=== PATIENT | female | born 1985 | race Caucasian/White ===

== ENCOUNTER 2021-10-10 09:22 | Outpatient (REF) | payer OTHER, SELFPAY ==
--- NOTE | ~2021-10-10 | XR_ITS ---
EXAMINATION: XR CHEST CLINICAL INFORMATION: Shortness of breath. COMPARISON: None TECHNIQUE: 2 views of the chest were obtained. FINDINGS: No significant abnormality is noted involving the heart, lungs, mediastinum, bony thorax or soft tissues. XR/XR chest 2V IMPRESSION: No acute cardiopulmonary process.
== END 2021-10-10 09:23 | disposition home or self-care (01) ==
LOC: HO.HMGCX 09:22
PROVIDERS: PCP Internal Medicine; Visit Provider Internal Medicine
DX: R06.02 Shortness of breath (principal); R06.2 Wheezing; R05.8 Other specified cough; F17.200 Nicotine dependence, unspecified, uncomplicated
CPT/HCPCS: 71046

== ENCOUNTER 2023-02-09 23:41 | Emergency (ER) | payer OTHER, SELFPAY ==
[2023-02-09 23:43] VITALS: BP 163/114; PULSE 109; RESP 20; TEMP 37.2; O2SAT 98; BMI 37.4
--- NOTE | 2023-02-10 00:26 | PC.NURSE ---
pt ambulated with a steady gait with this RN to and from bathroom
[2023-02-10 00:33] VITALS: PULSE 97; RESP 14; O2SAT 96
--- NOTE | 2023-02-10 00:36 | ED.GENADULT ---
HPI - General Adult General Chief complaint: General Medical Stated complaint: OD? 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 Related Data Home Medications Medication Instructions Recorded Confirmed gabapentin 300 mg capsule 300 mg PO TID 12/17/20 10/10/21 sertraline 100 mg tablet 200 mg PO QAM 12/17/20 10/10/21 buprenorphine 12 mg-naloxone 3 mg 6 mg sublingual DAILY 10/10/21 10/10/21 sublingual film (Suboxone) bupropion HCl 150 mg 24 hr tablet, 300 mg PO DAILY 10/10/21 10/10/21 extended release Previous Rx's Medication Instructions Recorded prednisone 20 mg tablet 20 mg PO DAILY 7 days #7 tabs 10/10/21 minocycline 100 mg capsule 100 mg PO BID #20 caps 10/30/21 Allergies Allergy/AdvReac Type Severity Reaction Status Date / Time No Known Allergies Allergy Verified 02/09/23 23:43 Review of Systems Review of Systems: All other systems are reviewed and are negative Constitutional: Reports as per HPI and Reports no additional constitutional complaints Eyes: Reports as per HPI and Reports no additional eye complaints Reports system reviewed and no additional complaints, except as documented Cardiovascular: Reports as per HPI and Reports no additional cardiovascular complaints Respiratory: Reports as per HPI and Reports no additional respiratory complaints Gastrointestinal: Reports as per HPI and Reports no additional gastrointestinal complaints Genitourinary: Reports no additional female genitourinary complaints Musculoskeletal: Reports no additional musculoskeletal complaints Skin/Breast: Reports system reviewed and no additional complaints, except as docu Psychiatric: Reports no additional psychiatric complaints Endocrine: Reports no additional endocrine complaints Hematologic/Lymphatic: Reports no additional hematologic/lymphatic complaints Allergic/Immunologic: Reports no additional allergic/immunologic complaints Reports system reviewed and no additional complaints, except as documented and Reports Abnormal speech present PMFSH Social History Social History Unable to assess alcohol history related to: Unknown Use of substances other than those prescribed or required for medical reasons: Yes Substance Use Type: Heroin Substance Use Frequency: Chronic Longstanding Last Used Substance: Just Prior to Admission Advance Directives: No Advance Directives Information Provided: Yes Patient : No Physical Exam ED Vital Signs: Vital Signs - 24 hr 02/09/23 23:43 02/10/23 00:33 Temperature 99.0 F Pulse Rate 109 H 97 Respiratory Rate 20 14 Blood Pressure 163/114 H Pulse Oximetry 98 96 Oxygen Delivery Method Room Air Room Air BMI result Body Mass Index 37.4 Vital signs have been reviewed and appear to be correct. Blood pressure elevated. Heart rate normal. Respiratory rate normal. Temperature normal. Oxygen saturation normal. Appearance: Alert. Oriented X3. No acute distress. Head: Normal external exam. Normocephalic. Atraumatic. No Humphreys signs noted. No raccoon eyes noted Eyes: PERRLA. EOMI. Conjunctiva and sclera normal. Eyelids normal. ENT: TM's Normal. Pharynx normal. Uvula midline. Moist mucous membranes. No trismus noted. No drooling noted. No muffled voice noted. Neck: Normal inspection. Neck supple. FROM. No adenopathy. Thyroid Normal. No meningeal signs. No neck mass noted. CVS: Normal heart rate and rhythm. Heart sound normal. No murmurs noted. Pulses normal throughout. Respiratory: No respiratory distress. Painless inspiration. Breath sounds normal. No wheezes/rales/rhonchi noted. Chest nontender. No accessory muscle usage noted or decreased air movement noted. Abdomen: Soft and nontender. Bowel sounds normal in all 4 quadrants. No distention noted. No organomegaly noted. No visible injury noted. Back: No CVA tenderness. Full range of motion noted. Skin: Skin warm and dry. Normal skin color. Normal skin turgor. No rashes/lesions/lacerations noted. Extremities: No lower extremity edema. Extremities exhibit normal range of motion. Extremities nontender. Neuro: Oriented X 3. Cranial nerve exam: II-XII are grossly intact No motor deficit. No sensory deficit. Reflexes normal. Course Course Course Narrative: 330 37-year-old female s/p heroin snorting require Narcan, patient now is awake and alert, with stable vital signs, no SI or HI, patient agreed using heroin stated that she will never use it again. Accidental OD. 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 Medical Decision Making Differential Diagnosis Differential Diagnoses: The differential diagnosis associated with the presentation includes ( substance abuse, SI.) Discharge Plan Discharge Clinical Impression: Heroin overdose Qualifiers: Encounter type: initial encounter Injury intent: accidental or unintentional Qualified Code(s): T40.1X1A - Poisoning by heroin, accidental (unintentional), initial encounter Patient Disposition: Home, Self-Care Instructions: Polysubstance Abuse (ED) Prescriptions: No Action gabapentin 300 mg capsule 300 mg PO TID sertraline 100 mg tablet 200 mg PO QAM buprenorphine-naloxone [Suboxone] 12-3 mg film 6 mg sublingual DAILY bupropion HCl 150 mg tablet extended release 24 hr 300 mg PO DAILY prednisone 20 mg tablet 20 mg PO DAILY 7 Days Qty: 7 0RF minocycline 100 mg capsule 100 mg PO BID Qty: 20 0RF
--- NOTE | 2023-02-10 03:31 | PC.NURSE ---
pt requesting to leave says she has a ride available to come pick her up. MD earl
[2023-02-10 03:32] VITALS: BP 156/94; PULSE 89; RESP 17; O2SAT 97
== END 2023-02-10 03:48 | disposition home or self-care (01) ==
PROVIDERS: Emergency Provider Emergency Medicine
DX: T40.1X1A Poisoning by heroin, accidental (unintentional), initial encounter (principal); Y92.9 Unspecified place or not applicable; F11.10 Opioid abuse, uncomplicated; Z79.899 Other long term (current) drug therapy; Z71.51 Drug abuse counseling and surveillance of drug abuser
CPT/HCPCS: 99284

== ENCOUNTER 2023-10-20 12:51 | Emergency (ER) | payer OTHER, SELFPAY ==
[2023-10-20 13:13] VITALS: BP 144/73; PULSE 84; RESP 18; TEMP 36.6; O2SAT 98; BMI 34.7
--- NOTE | 2023-10-20 13:22 | ED_ITS ---
HPI - General Adult General Chief complaint: Upper Respiratory Symptoms Stated complaint: sore throat Time Seen by Provider: 10/20/23 13:41 History of Present Illness ED Provider: Nahid NUGYEN HPI narrative: 38-year-old female healthy history of folliculitis, smoker presents to the ED for sore throat for the past couple of days. Patient states her kids were sick with strep. Patient denies any chest pain, shortness of breath, drooling, change in voice, or neck swelling. Related Data Home Medications ?Medication ?Instructions ?Recorded ?Confirmed gabapentin 300 mg capsule 300 mg PO TID 12/17/20 10/10/21 sertraline 100 mg tablet 200 mg PO QAM 12/17/20 10/10/21 buprenorphine 12 mg-naloxone 3 mg 6 mg sublingual DAILY 10/10/21 10/10/21 sublingual film (Suboxone) bupropion HCl 150 mg 24 hr tablet, 300 mg PO DAILY 10/10/21 10/10/21 extended release Previous Rx's ?Medication ?Instructions ?Recorded prednisone 20 mg tablet 20 mg PO DAILY 7 days #7 tabs 10/10/21 minocycline 100 mg capsule 100 mg PO BID #20 caps 10/30/21 amoxicillin 875 mg-potassium 1 tab PO Q12H 10 days #20 tabs 10/20/23 clavulanate 125 mg tablet naproxen 500 mg tablet 500 mg PO BID PRN pain 7 days #14 10/20/23 tabs Allergies Allergy/AdvReac Type Severity Reaction Status Date / Time No Known Allergies Allergy Verified 10/20/23 13:16 Review of Systems Review of Systems: sore throat Yes all other systems are reviewed and are negative [facility] Social History Social History Unable to assess alcohol history related to: Unknown Substance Use Type: Heroin Advance Directives: No Advance Directives Information Provided: No Do you have a plan to hurt others: No Plan Physical Exam ED Vital Signs: Vital Signs - 24 hr 10/20/23 13:13 10/20/23 14:11 Temperature 98 F 98 F Pulse Rate 84 84 Respiratory Rate 18 18 Blood Pressure 144/73 H 144/73 H Pulse Oximetry 98 98 Oxygen Delivery Method Room Air Room Air BMI result Body Mass Index 34.7 Const General: cooperative, healthy appearing, comfortable, no acute distress, well developed, alert, awake and Physically active Orientation/consciousness: oriented to person, oriented to place, oriented to time and patient oriented x3 [facility] Head: Yes normal to inspection, Yes No palpable skull fracture present, Yes normocephalic and Yes atraumatic Throat: Yes posterior oropharynx normal, Yes uvula midline and Yes abnormal tonsil (Bilateral tonsillar exudates. Negative for signs of peritonsillar abscess) Eyes General: appearance normal, both eyes and all related structures Neck Neck: Yes normal visual inspection, Yes full ROM, Yes no lymphadenopathy, Yes no meningeal signs, Yes trachea midline, Yes supple, No anterior neck swelling and No tender Chest Chest palpation & inspection: normal inspection of the chest and normal palpation of entire chest wall Resp Effort & Inspection: normal respiratory effort and able to speak in complete sen tences Auscultation: clear to auscultation bilaterally Cardio Jugular venous distension: no JVD Heart sounds: S1 normal heart sound present and S2 normal heart sound present GI Inspection: Yes normal to inspection Palpation (GI): Soft to palpation, not firm, nontender, no guarding and not rigid General: No CVA tenderness and Yes no CVA tenderness Back/Spine/Pelvis Back: no CVA tenderness, No CVA tenderness and No back tenderness Skin General skin exam: no rashes or lesions noted, elasticity normal and turgor normal Neuro General: oriented to person, oriented to place, oriented to time, patient oriented x3, gait normal, tone normal, moves all extremities, Normal light touch and pain sensation, no meningeal signs, no focal motor deficits, CN's II-XI intact bilaterally and normal sensation to monofilament Extrem General: Yes normal to inspection, Yes full ROM and Yes capillary refill normal Psych Appearance: grossly normal, well kempt and not disheveled Course Course Course Narrative: RME: Done by KANA Abbott. Patient presents to ED for sore throat since yesterday. Patient denies any drooling or change in voice. Physical exam positive for bilateral white exudates. Negative for signs of peritonsillar abscess. SARs strep ordered Medical Decision Making Medical Decision Making MDM Narrative: 38-year-old female presents to ED for sore throat. Patient not in any distress. Negative for signs of peritonsillar abscess. Positive for bilateral tonsillar exudates. Patient will be discharged with antibiotics. Patient is explained worrisome signs informed to return to the ED she has them Differential Diagnosis Differential Diagnoses: The differential diagnosis associated with the presentation includes (Strep, prior tonsillitis, COVID, influenza) Lab Data MDM Lab Attestation statement: I reviewed the patient's lab results. Labs: Lab Results 10/20/23 Range/Units 13:21 Influenza Type A (PCR) NEGATIVE (Negative) Influenza Type B (PCR) NEGATIVE (Negative) RSV RNA Qual (PCR) NEGATIVE (Negative) SARS-CoV-2 RNA (RT-PCR) NEGATIVE (Negative) S. pyogenes GrpA MEAGHAN Positive A (Negative) Independent Historian Clinical information obtained from an independent historian. History obtained from or confirmed by: Other (Patient) External Record Review External record reviewed: Other (anbiotics) Prescription Management I considered prescription management with: Antibiotic Discharge Plan Discharge Clinical Impression: Strep throat Patient Disposition: Home, Self-Care Instructions: Strep Throat (ED) Additional Instructions: Recommend follow-up for drooling, change in voice, neck swelling, chest pain, shortness of breath, inability tolerate solid food/liquid, fever, chills, or any other concerning symptoms. Recommend follow-up with primary care provider Prescriptions: New amoxicillin-pot clavulanate 875-125 mg tablet 1 tab PO Q12H 10 Days Qty: 20 0RF naproxen 500 mg tablet 500 mg PO BID PRN (Reason: pain) 7 Days Qty: 14 0RF No Action gabapentin 300 mg capsule 300 mg PO TID sertraline 100 mg tablet 200 mg PO QAM buprenorphine-naloxone [Suboxone] 12-3 mg film 6 mg sublingual DAILY bupropion HCl 150 mg tablet extended release 24 hr 300 mg PO DAILY prednisone 20 mg tablet 20 mg PO DAILY 7 Days Qty: 7 0RF minocycline 100 mg capsule 100 mg PO BID Qty: 20 0RF Stand Alone Forms: Work/School Release Interventions: ED Discharge Assessment Last Done: 10/20/23 14:11 Discharge Date/Time: 10/20/23 14:12 Print Language: Japanese
[2023-10-20 13:34] LABS: IDNOW Serial# 58CA691E; Strep A Nucleic Acid Positive (Negative)
[2023-10-20 14:07] LABS: Influenza A PCR NEGATIVE (Negative); Influenza B PCR NEGATIVE (Negative); Resp Syncy Virus RNA Qual PCR NEGATIVE (Negative); SARS COV2 PCR INHOUSE NEGATIVE (Negative)
[2023-10-20 14:11] VITALS: BP 144/73; PULSE 84; RESP 18; TEMP 36.6; O2SAT 98
== END 2023-10-20 14:12 | disposition home or self-care (01) ==
PROVIDERS: Physician Assistant; Emergency Provider Emergency Medicine; PCP Internal Medicine
DX: J02.0 Streptococcal pharyngitis (principal); F17.210 Nicotine dependence, cigarettes, uncomplicated; Z03.818 Encounter for observation for suspected exposure to other biological agents ruled out
CPT/HCPCS: 0241U; 87651; 99282; 99283

== ENCOUNTER 2023-12-11 11:56 | Emergency (ER) | payer OTHER, SELFPAY ==
[2023-12-11 12:33] VITALS: BP 151/88; PULSE 86; RESP 19; TEMP 36.8; O2SAT 98; BMI 34.4
--- NOTE | 2023-12-11 12:34 | ED.GENADULT ---
HPI - General Adult General Chief complaint: General Medical Stated complaint: strep Time Seen by Provider: 12/11/23 12:59 Source: patient Mode of arrival: ambulatory Limitations: no limitations History of Present Illness HPI narrative: Patient is a 38-year-old female who presents to the emergency department for evaluation of a sore throat with onset this morning. Admits to a history of strep infection in October, she did not complete her entire course of antibiotics having missed 4 doses. She took 2 tablets this morning. She has concern that she was around coworkers who have strep as well. Related Data Home Medications ?Medication ?Instructions ?Recorded ?Confirmed gabapentin 300 mg capsule 300 mg PO TID 12/17/20 10/10/21 sertraline 100 mg tablet 200 mg PO QAM 12/17/20 10/10/21 buprenorphine 12 mg-naloxone 3 mg 6 mg sublingual DAILY 10/10/21 10/10/21 sublingual film (Suboxone) bupropion HCl 150 mg 24 hr tablet, 300 mg PO DAILY 10/10/21 10/10/21 extended release Previous Rx's ?Medication ?Instructions ?Recorded prednisone 20 mg tablet 20 mg PO DAILY 7 days #7 tabs 10/10/21 minocycline 100 mg capsule 100 mg PO BID #20 caps 10/30/21 amoxicillin 875 mg-potassium 1 tab PO Q12H 10 days #20 tabs 10/20/23 clavulanate 125 mg tablet naproxen 500 mg tablet 500 mg PO BID PRN pain 7 days #14 10/20/23 tabs Allergies Allergy/AdvReac Type Severity Reaction Status Date / Time No Known Allergies Allergy Verified 12/11/23 12:38 Review of Systems Review of Systems: Yes all other systems are reviewed and are negative PMFSH Past Medical History Attestation statement: The following information was validated with the patient. Source: old records reviewed Social History Social History Unable to assess alcohol history related to: Unknown Substance Use Type: Heroin Advance Directives: No Advance Directives Information Provided: No Do you have a plan to hurt others: No Plan Physical Exam ED Vital Signs: Vital Signs - 24 hr 12/11/23 12:33 Temperature 98.2 F Pulse Rate 86 Respiratory Rate 19 Blood Pressure 151/88 H Pulse Oximetry 98 Oxygen Delivery Method Room Air BMI result Body Mass Index 34.4 Appearance: Alert.?Oriented to person, place and time. No acute distress.?Normal affect. Eyes: Pupils equal, round and reactive to light.? ENT: Pharynx normal.? No erythema, tonsillar hypertrophy, exudates. Uvula is midline. No trismus. No drooling. ? Neck: Normal inspection.? Neck supple.??No cervical adenopathy CVS: Heart sounds normal. Normal heart rate and rhythm.? Pulses normal.?? Respiratory: No respiratory distress.? Lung sounds clear to auscultation bilaterally?? Skin: Skin warm and dry.? Normal skin color.? Extremities: No lower extremity edema.? Neuro: Moves all extremities spontaneously. Sensation intact bilaterally. Ambulates with normal steady gait. Course Course Course Narrative: This is an RME: Additional HPI, ROS, PE not included below will be deferred to primary provider. RME assessment and note performed by: Selina Stephenson PA-C This is a [id number]-female who presents to the ER with a complaint of sore throat since this morning. Had strep throat in October, missed 4 doses of this antibiotic then. Had recent outbreak at work. Took 2 tablets of abx this AM from left over prescription Plan: strep and viral swabs Medical Decision Making Medical Decision Making [facility] Narrative: Patient is a 38-year-old female who presents emergency department for evaluation of a sore throat with onset this morning. Expressed concern for strep throat as she did not complete her previous course of antibiotics in October, and was around some coworkers who have tested positive for strep. On evaluation pharynx is without erythema swelling or exudates. 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 No cervical adenopathy. No additional constitutional symptoms are present. She appears overall well. Viral panel for COVID-19/influenza/RSV are negative, strep a testing is negative. Discussed with patient conservative treatment including warm saltwater gargles, throat lozenges and Chloraseptic throat spray. Acetaminophen/ibuprofen. Advised to follow up with her primary care provider. Reviewed worrisome signs and symptoms that would warrant re-evaluation in the emergency department. All questions answered. Differential Diagnosis Differential Diagnoses: The differential diagnosis associated with the presentation includes (See narrative above) Lab Data [facility] Lab Attestation statement: I reviewed the patient's lab results. (See narrative above) Labs: Lab Results 12/11/23 12/11/23 Range/Units 12:50 12:51 Influenza Type A (PCR) NEGATIVE (Negative) Influenza Type B (PCR) NEGATIVE (Negative) RSV RNA Qual (PCR) NEGATIVE (Negative) SARS-CoV-2 RNA (RT-PCR) NEGATIVE (Negative) S. pyogenes GrpA MEAGHAN Negative (Negative) External Record Review External record reviewed: Outpatient record Prescription Management I considered prescription management with: Pain Medication (See narrative above) Discharge Plan Discharge Clinical Impression: Pharyngitis Patient Disposition: Home, Self-Care Instructions: Pharyngitis (ED) Additional Instructions: Testing today for COVID-19/influenza/strep were negative. You can take ibuprofen 200 mg, 3 tablets (600mg) every 6-8 hours as needed for pain, in addition to Tylenol 500 mg, 2 tablets (1,000mg) every 4-6 hours as needed for pain, but not to exceed 3 doses daily (3,000mg).? Warm salt water gargles, throat lozenges, Chloraseptic throat spray from the pharmacy may as well be helpful for your symptoms. Patient that you are staying well hydrated and drinking plenty of fluid. Follow-up with your primary care provider as needed. Prescriptions: No Action amoxicillin-pot clavulanate 875-125 mg tablet 1 tab PO Q12H 10 Days Qty: 20 0RF naproxen 500 mg tablet 500 mg PO BID PRN (Reason: pain) 7 Days Qty: 14 0RF gabapentin 300 mg capsule 300 mg PO TID sertraline 100 mg tablet 200 mg PO QAM buprenorphine-naloxone [Suboxone] 12-3 mg film 6 mg sublingual DAILY bupropion HCl 150 mg tablet extended release 24 hr 300 mg PO DAILY prednisone 20 mg tablet 20 mg PO DAILY 7 Days Qty: 7 0RF minocycline 100 mg capsule 100 mg PO BID Qty: 20 0RF Referrals: Chandni Ramsey MD [Primary Care Provider] - Stand Alone Forms: Work/School Release Print Language: Gambian
[2023-12-11 13:09] LABS: IDNOW Serial# 08D9AD1C; Strep A Nucleic Acid Negative (Negative)
[2023-12-11 13:38] LABS: Influenza A PCR NEGATIVE (Negative); Influenza B PCR NEGATIVE (Negative); Resp Syncy Virus RNA Qual PCR NEGATIVE (Negative); SARS COV2 PCR INHOUSE NEGATIVE (Negative)
[2023-12-11 14:35] VITALS: BP 147/92; PULSE 69; RESP 16; TEMP 36.8; O2SAT 98
== END 2023-12-11 14:39 | disposition home or self-care (01) ==
PROVIDERS: Physician Assistant Medical; Emergency Provider Student in an Organized Health Care Education/Training Program; PCP Internal Medicine
DX: J02.9 Acute pharyngitis, unspecified (principal); Z03.818 Encounter for observation for suspected exposure to other biological agents ruled out
CPT/HCPCS: 0241U; 87651; 99282; 99283

== ENCOUNTER 2024-06-14 12:26 | Emergency (ER) | payer OTHER, SELFPAY ==
[2024-06-14 13:48] VITALS: BP 135/83; PULSE 98; RESP 18; TEMP 36.4; O2SAT 98; BMI 34.1
--- NOTE | 2024-06-14 13:52 | ED.GENADULT ---
HPI - General Adult General Chief complaint: Skin/Abscess/Foreign Body Stated complaint: Abscess on back History of Present Illness HPI narrative: Patient left the ED before completion of treatment by ED provider. Related Data Home Medications ?Medication ?Instructions ?Recorded ?Confirmed gabapentin 300 mg capsule 300 mg PO TID 12/17/20 10/10/21 sertraline 100 mg tablet 200 mg PO QAM 12/17/20 10/10/21 buprenorphine 12 mg-naloxone 3 mg 6 mg sublingual DAILY 10/10/21 10/10/21 sublingual film (Suboxone) bupropion HCl 150 mg 24 hr tablet, 300 mg PO DAILY 10/10/21 10/10/21 extended release Previous Rx's ?Medication ?Instructions ?Recorded prednisone 20 mg tablet 20 mg PO DAILY 7 days #7 tabs 10/10/21 minocycline 100 mg capsule 100 mg PO BID #20 caps 10/30/21 amoxicillin 875 mg-potassium 1 tab PO Q12H 10 days #20 tabs 10/20/23 clavulanate 125 mg tablet naproxen 500 mg tablet 500 mg PO BID PRN pain 7 days #14 10/20/23 tabs Allergies Allergy/AdvReac Type Severity Reaction Status Date / Time No Known Allergies Allergy Verified 06/14/24 13:50 [facility] Social History Social History Unable to assess alcohol history related to: Unknown Substance Use Type: Heroin Advance Directives: No Advance Directives Information Provided: No Do you have a plan to hurt others: No Plan Physical Exam ED Vital Signs: Vital Signs - 24 hr 06/14/24 13:48 Temperature 97.5 F Pulse Rate 98 Respiratory Rate 18 Blood Pressure 135/83 Pulse Oximetry 98 Oxygen Delivery Method Room Air BMI result Body Mass Index 34.1 Course Course Course Narrative: RME: 39-year-old female presents to ED for possible back abscess. Patient has not between back with drainage. Patient has tried to draining with tweezers. Patient to be re-evaluating [facility]. Discharge Plan Discharge Clinical Impression: Abscess of skin or subcutaneous tissue Patient Disposition: Left W/O Completing Treatment Prescriptions: No Action amoxicillin-pot clavulanate 875-125 mg tablet 1 tab PO Q12H 10 Days Qty: 20 0RF naproxen 500 mg tablet 500 mg PO BID PRN (Reason: pain) 7 Days Qty: 14 0RF gabapentin 300 mg capsule 300 mg PO TID sertraline 100 mg tablet 200 mg PO QAM buprenorphine-naloxone [Suboxone] 12-3 mg film 6 mg sublingual DAILY bupropion HCl 150 mg tablet extended release 24 hr 300 mg PO DAILY prednisone 20 mg tablet 20 mg PO DAILY 7 Days Qty: 7 0RF minocycline 100 mg capsule 100 mg PO BID Qty: 20 0RF Discharge Date/Time: 06/14/24 18:40
== END 2024-06-14 18:40 | disposition left against medical advice (07) ==
LOC: HO.ED 18:29
PROVIDERS: Emergency Provider Emergency Medicine; PCP Internal Medicine
DX: L02.212 Cutaneous abscess of back [any part, except buttock and flank] (principal); Z79.899 Other long term (current) drug therapy
CPT/HCPCS: 99281; 99283

== ENCOUNTER 2025-01-07 15:49 | Emergency (ER) | payer OTHER, SELFPAY ==
--- NOTE | ~2025-01-07 | XR_ITS ---
CLINICAL HISTORY: possible needle in chin? 4 view facial bones Comparison: None provided Findings: No acute fractures. Paranasal sinuses and mastoids are clear. No radiopaque foreign body. IMPRESSION: No suspicious radiopaque foreign body. This document has been electronically signed by: Sonia Guerra MD on 01/07/2025 18:01:50
[2025-01-07 16:09] VITALS: BP 183/86; PULSE 112; RESP 20; TEMP 36; O2SAT 97; BMI 32.6
--- NOTE | 2025-01-07 16:09 | ED_ITS ---
HPI - General Adult General Chief complaint: Wound/Laceration Stated complaint: left side chin, right jaw wound-goes to wound care Time Seen by Provider: 01/07/25 17:02 Source: patient Mode of arrival: ambulatory Limitations: no limitations History of Present Illness ED Provider: Marybeth Liu PA-C HPI narrative: Patient is a 39 year old assigned female at with a history of anxiety and ongoing left sided facial wound presenting to the emergency department for a left chin lesion and concern of needle tip in the wound. Patient reports the lesion is inflamed, painful, and feels like there is something hard stuck in the lesion . Patient states that she will pick at the lesion to try to remove whatever is stuck and used a sterile needle a few days ago. She is concerned that the tip of the needle broke off and is now stuck in the lesion. She states that she has been on over 10 courses of antibiotics in the past 6 months for the chin lesion. Patient reports the left chin lesion has been present since 07/2024 and she goes to a wound clinic weekly for wound care of the lesion. She reports she has been using an osteopathic ointment called Ichthammol on the lesion which helps. Patient denies fever, chills, headache, dizziness, shortness of breath, difficulty breathing, abdominal pain, nausea, vomiting, or any other symptoms. Patient currently vapes and denies any current substance use. Patient reports upcoming appointment with dermatology on 01/20/2025 and imaging ordered by wound care on 02/02/2025. Patient also reports she had a referral placed to a plastic surgeon by her primary care that she plans to call this coming Thursday. Related Data Home Medications ?Medication ?Instructions ?Recorded ?Confirmed gabapentin 300 mg capsule 300 mg PO TID 12/17/2010/10 sertraline 100 mg tablet 200 mg PO QAM 12/17/2010/10 buprenorphine 12 mg-naloxone 3 mg 6 mg sublingual VINH Y 10/10/21 10/10/21 sublingual film (Suboxone) bupropion HCl 150 mg 24 hr tablet, 300 mg PO DAILY 01/2310/10/21 extended release Previous Rx's ?Medication ?Instructions ?Recorded prednisone 20 mg tablet 20 mg PO DAILY 7 days #7 tab s 10/10/21 minocycline 100 mg capsule 100 mg PO BID #20 caps 10/03 01/23 amoxicillin 875 mg-potassium 1 tab PO Q12H 10 days #20 tabs 10/20/23 clavulanate 125 mg tablet naproxen 500 mg tablet 500 mg PO BID PRN pain 7 day s #14 10/20/23 tabs sulfamethoxazole 800 1 tab PO BID 7 days #14 tabs 01/07/25 mg-trimethoprim 160 mg tablet (Bactrim DS) Allergies Allergy/AdvReac Type Severity Reaction Status Date / Time No Known Allergies Allergy Verified 01/07/25 16:09 Review of Systems 2 Constitutional: Constitutional: Reports as per HPI Eyes: Eyes: Reports as per HPI ENT: Reports as per HPI Cardiovascular: Cardiovascular: Reports as per HPI Respiratory: Respiratory: Reports as per HPI Gastrointestinal: Gastrointestinal: Reports as per HPI Genitourinary: Genitourinary: Reports as per HPI Musculoskeletal: Musculoskeletal: Reports as per HPI Integumentary/Breasts: Skin/Breast: Reports as per HPI Neurologic: Reports as per HPI Psychiatric: Psychiatric: Reports as per HPI Endocrine: Endocrine: Reports as per HPI Hematologic/Lymphatic: Hematologic/Lymphatic: Reports as per HPI Allergic/Immunologic: Allergic/Immunologic: Reports as per HPI [facility] Past Medical History Attestation statement: The following information was validated with the patient. Source: old records reviewed and nursing notes reviewed Social History Social History Unable to assess alcohol history related to: Unknown Substance Use Type: Heroin Advance Directives: No Advance Directives Information Provided: No Physical Exam ED Vital Signs: Vital Signs - 24 hr 01/07/25 16:09 01/07/25 18:35 Temperature 96.8 F 98.9 F Pulse Rate 112 H 100 Respiratory Rate 20 20 Blood Pressure 183/86 H 139/97 H Pulse Oximetry 97 99 Oxygen Delivery Method Room Air Room Air BMI result Body Mass Index 32.6 Const General: cooperative, no acute distress, alert and awake Nutritional Appearance: well nourished Orientation/consciousness: patient oriented x3 HENMT Head: Yes normal to inspection and Yes atraumatic Ears: hearing grossly normal bilaterally and external ears normal General nose exam: Normal external nose present, no nasal discharge noted and no epistaxis Face and sinus: No abrasion and No laceration Face images: 2 1. indurated lesion present with minimal surrounding erythema Mouth: Normal oral and palatal mucosa present, no drooling and no muffled voice Eyes General: appearance normal, both eyes and all related structures Periorbital: periorbital findings normal Eyelids: Yes eyelids normal Conjunctivae: conjunctivae normal Pupils: Equal, round and reactive pupils present EOM: EOMs intact bilaterally Neck Neck: Yes normal visual inspection and Yes full ROM Resp Effort & Inspection: normal respiratory effort and able to speak in complete sentences Neuro General: patient oriented x3, moves all extremities and CN's II-XI intact bilaterally Cranial nerves: Yes Equal, round and reactive pupils present Cognition (Neuro): normal cognition Extrem General: Yes normal to inspection, Yes full ROM and Yes capillary refill normal Psych Appearance: grossly normal Mental Status: mental status grossly normal Affect: normal affect Attitude: cooperative Thought process: Normal thought process present Thought content: Normal thought content present Insight: Good insight present (Psych) Course Course Course Narrative: This is a Rapid Medical Examination (RME) performed by Marisol Quinones PA-C in triage. Full HPI, ROS, assessment and treatment plan per primary provider in the Main ED. Hx: 39 yo F here for eval of worsening facial pain/ swelling x4 days. reports chronic ulcer to left chin region and right cheek x6 months, of unknown origin. has followed w/ wound care for 2 mo. has some sort of imaging scheduled w/ radiology on 02/02. reports picking at it with a hypodermic needle 4 days ago, believes the tip of the needle broke off into the ulcerated area as the area has been more painful/swollen. also reports swelling to left knee x3 months. Plan: labs, will defer imaging to primary provider. Medical Decision Making Medical Decision Making [facility] Narrative: Patient is a 39 year old assigned female at with a history of anxiety and ongoing left sided facial wound presenting to the emergency department for a left chin lesion and concern of needle tip in the wound. Patient's physical exam was as noted in the physical exam portion of this note. Patient's blood work was unremarkable. Patient's facial bones x-ray showed no acute process or foreign body. I explained my physical exam findings as well as all test results to the patient. I answered all questions asked by the patient. I had an extensive conversation with the patient about her goals of care and current treatment plan. I explained to the patient that it would be inappropriate for me to open the area here in the emergency department and if she wanted something to be done this evening, I would recommend she be transferred to a tertiary care center with OMFS / Plastic surgery coverage. The patient declined this stating she is a single mother of twin boys and has to be to work and to support them. We discussed things further and determined the best course of action would be for the patient to be sent home on bactrim (patient states this has worked the best for her in the past) and having her follow up with the wound care center, her PCP, and calling the plastic surgeon she was referred to on Thursday. I will also refer the patient to [facility]. I stressed the importance of the patient taking her medication as directed (either prescribed or as the over the counter packaging recommends). I stressed the importance of the patient following up with her primary care provider, the wound care center, and a plastic surgeon. I stressed the importance of the patient returning to the emergency department immediately if her symptoms were to worsen or if she were to develop any dizziness, shortness of breath, difficulty breathing, chest pain, blurry vision, loss of vision, nausea, vomiting, abdominal pain, fever, chills, back pain, or any other complaints. Patient verbalized agreement and understanding with this treatment plan and discharge. Differential Diagnosis Differential Diagnoses: The differential diagnosis associated with the presentation includes Chronic facial lesion Chronic wound Cellulitis Admission/Observation Consideration of admission/observation: Escalation of care including admission/observation considered Patient would have been admitted to the hospital had her work up had any findings where hospital admission was appropriate and her clinical presentation warranted hospital admission. Lab Data MDM Lab Attestation statement: I reviewed the patient's lab results. My interpretation of these studies and their corresponding values is that they are grossly normal. 01/07/25 16:36 01/07/25 16:36 Labs: Lab Results 01/07/25 Range/Units 16:36 WBC 7.8 (4.8-10.8) X10*3/uL RBC 4.28 (4.20-5.50) X10*6/uL Hgb 12.5 (12.0-16.0) g/dl Hct 36.4 L (37.0-47.0) % MCV 85.0 (80.0-98.0) fL MCH 29.2 (27.0-33.0) pg MCHC 34.3 (31.0-35.0) g/dl RDW 13.2 (11.0-16.0) % Plt Count 282 (160-400) X10*3/uL MPV 11.2 (9.4-12.3) fL Immature Gran % (Auto) 0.1 (0.0-0.4) % Neut % (Auto) 61.2 (45-73) % Lymph % (Auto) 31.8 (20-40) % [place] % (Auto) 5.8 (2-11) % Eos % (Auto) 0.5 (0-4) % Baso % (Auto) 0.6 (0-2) % Lymph # (Auto) 2.5 (1.2-4.9) X10*3/uL [place] # (Auto) 0.5 (0.1-1.2) X10*3/uL Eos # (Auto) 0.0 (0.0-0.4) X10*3/uL Baso # (Auto) 0.1 (0.0-0.2) X10*3/uL Abs Immat Gran (auto) 0.01 (0.00-0.03) X10*3/uL Absolute Neuts (auto) 4.8 (2.0-8.3) x10*3/uL Absolute Nucleated RBC 0.000 (0.0-0.012) X10*3/uL Nucleated RBC % (auto) 0.0 (0.0-0.2) /100WBC ESR 7 (0-20) MM/HR Sodium 140 (135-145) mmol/L Potassium 3.9 (3.3-5.1) mmol/L Chloride 106 (96-108) mmol/L Carbon Dioxide 23 (22-29) mmol/L Anion Gap 15 (12-20) BUN 18 H (9-16) mg/dL Creatinine 0.75 (0.5-1.4) mg/dL Estim Creat Clear Calc 111.9 Estimated GFR > 60 Random Glucose 96 (60-115) mg/dL Calcium 9.6 (8.4-10.2) mg/dL Magnesium 1.9 (1.6-2.6) mg/dL Total Bilirubin 0.2 (0.0-1.0) mg/dL AST 26 (5-31) U/L ALT 24 (0-31) U/L Alkaline Phosphatase 77 (39-117) U/L C-Reactive Protein < 0.10 (< or = 0.50) mg/dL Total Protein 7.9 (6.5-8.0) g/dL Albumin 5.0 (3.5-5.0) g/dL Independent Interpretation I performed an independent interpretation of an: Plain X-Ray Interpretation: My interpretation is in agreement with the radiologist's impression of this imaging study. L Reason for Exam: possible needle in chin? CLINICAL HISTORY: possible needle in chin? 4 view facial bones Comparison: None provided Findings: No acute fractures. Paranasal sinuses and mastoids are clear. No radiopaque foreign body. IMPRESSION: No suspicious radiopaque foreign body. This document has been electronically signed by: Sonia Guerra MD on 01/07/2025 18:01:50 Dictated By: Sonia Guerra MD Signed By: Electronically signed by Sonia Guerra MD 01/07/25 1802 Radiology Impression Discussion of test interpretation with radiology: I have reviewed the radiologist's reading. Prescription Management I considered prescription management with: Antibiotic (patient prescribed an antibiotic for her left sided facial lesion) Discharge Plan Discharge Clinical Impression: Cellulitis, Facial lesion Patient Disposition: Home, Self-Care Instructions: Cellulitis (ED), Warm Compress or Soak (ED) Additional Instructions: Take your medication as prescribed. Continue applying warm compresses to the area. Follow up with the wound center as well as plastic surgeon. IF you are prescribed home medications and/or you are taking over the counter medications at home - it is very important you continue to do so as prescribed / directed unless told otherwise. Follow up with your primary care provider. Return to the emergency department immediately if your symptoms worsen or if you develop any numbness, tingling, dizziness, shortness of breath, difficulty breathing, chest pain, blurry vision, loss of vision, nausea, vomiting, abdominal pain, fever, chills, back pain, or any other complaints. Please see the information below about our Patient Portal. If you are not yet enrolled in the [facility] Patient Portal, you will receive an enrollment email invitation following your visit to any [facility] setting. You may also self-enroll in the Patient Portal by visiting our website: [email or web address] The following information is required to access the Patient Portal: - Your [facility] Medical Record Number - Your personal home email address (must match what is in your electronic medical record, Registration staff can assist with this) - Name - Date of Capabilities of the Patient Portal: - Message some providers - View upcoming appointments - Access your health summary, medical history, and visit history - View current conditions and allergies - View procedure and lab results - View your medications, including guidelines, side effects, and precautions - Complete pre-appointment questionnaires requested by your provider - Ready summary reports of your office visits and procedures To access the Patient Portal Mobile Barron, follow these directions: - Search FriendFit in the [employer] Store or [employer] Store - Download the Barron - Search for [facility] - Enter your login/password Prescriptions: New sulfamethoxazole-trimethoprim [Bactrim DS] 800-160 mg tablet 1 tab PO BID 7 Days Qty: 14 0RF No Action amoxicillin-pot clavulanate 875-125 mg tablet 1 tab PO Q12H 10 Days Qty: 20 0RF naproxen 500 mg tablet 500 mg PO BID PRN (Reason: pain) 7 Days Qty: 14 0RF gabapentin 300 mg capsule 300 mg PO TID sertraline 100 mg tablet 200 mg PO QAM buprenorphine-naloxone [Suboxone] 12-3 mg film 6 mg sublingual DAILY bupropion HCl 150 mg tablet extended release 24 hr 300 mg PO DAILY prednisone 20 mg tablet 20 mg PO DAILY 7 Days Qty: 7 0RF minocycline 100 mg capsule 100 mg PO BID Qty: 20 0RF Referrals: Chandni Ramsey MD [Primary Care Provider, Medical] [facility] [Outside] Referral Note: Call to establish and follow up with a plastic surgeon. Print Language: Macedonian
[2025-01-07 16:41] LABS: MANUAL DIFF FLAG NO
[2025-01-07 16:44] LABS: Hematocrit 36.4 % (37.0-47.0); Hemoglobin 12.5 g/dl (12.0-16.0); Imm Gran Abs Auto 0.01 X10*3/uL (0.00-0.03); Imm Gran Pct Auto 0.1 % (0.0-0.4); Lymphocytes Absolute Auto 2.5 X10*3/uL (1.2-4.9); Mean Corpuscular HGB Conc 34.3 g/dl (31.0-35.0); Mean Corpuscular Hemoglobin 29.2 pg (27.0-33.0); Mean Corpuscular Volume 85.0 fL (80.0-98.0); NRBC Abs Auto 0.000 X10*3/uL (0.0-0.012); NRBC Pct Auto 0.0 /100WBC (0.0-0.2); Platelet Count 282 X10*3/uL (160-400); Red Blood Count 4.28 X10*6/uL (4.20-5.50); White Blood Count 7.8 X10*3/uL (4.8-10.8)
--- OUTSIDE RECORDS SUMMARY | 2025-01-07 16:54 | XMS_ITS | Clinical Summary ---
Author Organization [address] Address [address] [place] [id number] Phone Care Team Providers Care Geophysical Laboratory Supervisor Name Role Phone Chandni Ramsey MD Primary Care Provider [phone] Allergies Active Allergy Reactions Criticality Noted Date Comments Other 03/08/2015 Seasonal allergies Watery eye's , runny nose Medications methylphenidate (RITALIN) 10 mg tablet Take 1 Tablet by mouth 2 Times Daily. 07/28/2023 Active methylphenidate (RITALIN) 5 mg tablet Take 1 Tablet by mouth 2 Times Daily. 07/23/2023 Active gabapentin (NEURONTIN) 400 mg capsule TAKE 1 CAPSULE BY MOUTH THREE TIMES A DAY 07/19/2023 Active buPROPion XL (WELLBUTRIN XL) 150 mg 24 hr tablet TAKE 1 TABLET BY MOUTH EVERY DAY IN THE MORNING 07/23/2023 Active sertraline (ZOLOFT) 100 mg tablet Take 1 Tablet by mouth daily. 2 tablets daily Active buprenorphine HCl/naloxone HCl (SUBOXONE SL) Place under the tongue. 6 mg daily Active gabapentin (NEURONTIN) 300 mg capsule 3 times daily. 12/10/2021 Active amLODIPine (NORVASC) 2.5 mg tablet TAKE 1 TABLET BY MOUTH EVERY DAY 90 tablet 1 10/31/2024 Active Active Problems Problem Noted Date Diagnosed Date Pure hypercholesterolemia 08/17/2023 Bone spur of left foot 02/24/2022 Elevated blood pressure reading 02/24/2022 Obesity (BMI 30-39.9) 02/24/2022 Foot pain, left 12/13/2021 Folliculitis 08/31/2020 Hirsutism 05/25/2020 Snoring 11/11/2018 Overview (04/14/2024): 11/2018 Home Sleep Study did not reveal sleep apnea or nocturnal hypoxia. Dorsocervical fat pad 11/17/2017 Cigarette smoker 12/05/2016 Pap smear abnormality of cervix 10/16/2016 Overview (04/14/2024): 10/16/2016 Negative cytology, Positive High Risk HPV PCOS (polycystic ovarian syndrome) 05/29/2014 Overview (04/14/2024): Followed by Dr. Sherman Asthma 05/18/2014 Depression 05/18/2014 Overview (04/14/2024): F/u [facility]N History of substance abuse ([facility] V24, [facility] V28) 05/18/2014 Overview (04/14/2024): Cocaine/Heroin Now attends AA 10/09/2016 Was on vivatrol for management from [facility]. Gabriella Dacia stopped medication August 2016 r/t + Encounters Date Type Department Care Team Description 10/12/2024 Telephone Infectious Disease - [address] [place] [address] Sera Nathan MA from Last 3 Months Immunizations Name Administration Dates Next Due HPV 9-valent (Gardisil) 9yo to less than 46yo 08/24/2020 HPV, Quadrivalent 08/20/2009 Hepatitis B (Mgaugnt-S-Zrfbp , Recombivax HB-Adult) 19yo and older 12/22/2018,11/17/2018 Influenza Quadravalent, MDCK , 0.5ml, preservative free (Flucelvax) 6mo and older 04/18/2018 Influenza trivalent, 0.5mL, preservative free (Fluarix; FluLaval; Fluzone) ages 6mo and older (Afluria) 3 years and older 01/23/2016,03/08/2015 MMR, measles mumps and rubel la Live (Priorix; M-M-R II) 12mo and older 11/03/2018 PPD Test 12/22/2018, 9,07/16/2015,2015 Pneumococcal conjugate 13 va lent (Prevnar 13, PCV13) 2mo and older 07/18/2015 Tdap Tetanus diptheria acell ular pertussis (Boostrix; Adacel) 7yo and older 07/16/2015,06/20/2011 Surgical History Surgery Date Site/Laterality Comments SECTION PROCEDURE: HISTORICAL DELIVERY Medical History Medical History Date Comments Substance abuse ([facility] [place]24 , [facility] V28) DX:Substance abuse ([facility]); CO MMENT: past heroin user (clean since 07/30/13 HSV-1 infection DX:HSV-1 infecti on Anxiety and depression 05/18/2014 DX:Anxiet y and depression Asthma 05/18/2014 DX:Asthma Bipolar disorder ([facility] V2 4, [facility] V28) DX:Bipolar disorder ([facility]) Catahoula hump 11/17/2017 DX:Catahoula hump Family History Medical History Relation Name Comments Melanoma Aunt maternal side Hypertension Father Ovarian cancer Mother Breast cancer Neg Hx Cancer of Small Bowel Neg Hx Colon cancer Neg Hx Kidney cancer Neg Hx Pancreatic cancer Neg Hx Relation Name Status Comments Aunt Brother Alive Father Alive Maternal Grandfather Maternal Grandmother Alive Mother Alive Social History Tobacco Use Types Packs/Day Years Used Date Smoking Tobacco: Former Smokeless Tobacco: Never Alcohol Use Standard Drinks/Week Comments Yes 0 (1 standard drink = 0.6 oz pur e alcohol) Comments Unknown Sex and Gender Information Value Date Recorded Sex Assigned at Not on file Legal Sex Female 12:02 PM EST Gender Identity Not on file Sexual Orientation Not on file Obstetrics History Last Filed Vital Signs Vital Sign Reading Time Taken Comments Blood Pressure 122/82 10/05/2024 10:23 AM EDT Pulse 74 10/05/2024 10:23 AM EDT Temperature 36.3 C (97.3 F) 10/05/2024 10:23 AM EDT Respiratory Rate 20 10/05/2024 10:23 AM EDT Oxygen Saturation - - Inhaled Oxygen Concentration - - Weight 90.7 kg (200 lb) 10/05/2024 10:23 AM EDT Height 165.1 cm (5' 5 ) 10/05/2024 10:23 AM EDT Body Mass Index 33.28 10/05/2024 10:23 AM EDT Plan of Treatment Health Maintenance Due Date Last Done Comments Pneumococcal Vaccine: Pediatrics (0 to 5 Years) and At-Risk Patients (6 to 49 Years) (2 of 2 - PPSV23) 09/12/2015 07/18/2015 Hepatitis B Vaccines (3 of 3 - 19+ 3-dose series) 05/20/2019 12/22/2018, 11/17/2018 HPV Vaccines (3 - 3-dose series) 11/16/2020 08/24/2020, 08/20/2009 Social Influencers of Health Screening 04/12/2022 Depression Screening 05/04/2024 08/14/2023 COVID-19 Vaccine ( season) 2025 06/29/2021, 05/22/2020, 05/01/2020 Influenza Vaccine (#1) 2025 , 04/18/2018, 01/23/2016, Additional history exists DTaP,Tdap,and Td Vaccines (3 - Td or Tdap) 07/15/2025 07/16/2015, 06/20/2011 Cervical Cancer Screening: HPV 05/28/2028 05/28/2023 Cholesterol Screening (Lipid Panel) 08/13/2028 08/14/2023 MMR Vaccines Aged Out 11/03/2018 No longer eligi ble based on patient's age to complete this topic HIV Screening Completed 05/28/2023 Hepatitis C Screening Completed 05/28/2023 HIB Vaccines Aged Out No longer eligi ble based on patient's age to complete this topic Hepatitis A Vaccines Aged Out No long er eligible based on patient's age to complete this topic IPV Vaccines Aged Out No longer eligi ble based on patient's age to complete this topic Meningococcal ACWY Vaccine Aged Out N o longer eligible based on patient's age to complete this topic Meningococcal B Vaccine Aged Out No l onger eligible based on patient's age to complete this topic RSV Immunization Patients Under 20 months Aged Out No longer eligible based on patient's age to complete this topic Varicella Vaccines Aged Out No longer eligible based on patient's age to complete this topic Procedures Procedure Name Priority Date/Time Associated Diagnosis Comments HM DEPRESSION SCREENING Routine 08/14/2023 LIPID PANEL Routine 08/14/2023 HPV Routine 05/28/2023 HEPATITIS C SCREENING Routine 05/28/2023 HIV SCREENING Routine 05/28/2023 from Last 3 Months or Most Recently Relevant to Health Maintenance Results * Depression Screening (08/14/2023) Pathologist [facility] Depression Screening abstracted [facility] Provider HEALTH MAINTENANCE Final Result * (ABNORMAL) Lipid panel (08/14/2023) Pathologist [facility] LDL/HDL Ratio 4 0 - 4 Triglycerides 135 0 - 150 mg/dL Cholesterol 210(A) 0 - 200 mg/dL HDL 51 >=40 mg/dL LDL Cholesterol 132(A) 0 - 100 mg/dL Blood Venous blood specimen / Unknown [facility] Provider LAB BLOOD ORDERABLES Mary l Result * Cervical Cancer Screening: HPV (05/28/2023) Pathologist [facility] Cervical Cancer Screening: HPV abstracted, negative [facility] Provider HEALTH MAINTENANCE Final Result * HIV Screening (05/28/2023) [facility] HIV Screening abstracted [facility] Provider HEALTH MAINTENANCE Final Result * Hepatitis C Screening (05/28/2023) Pathologist [facility] Hepatitis C Screening abstracted [facility] Provider HEALTH MAINTENANCE Final Result from Last 3 Months or Most Recently Relevant to Health Maintenance Insurance [address] [place] [address] [facility] Care Teams Geophysical Laboratory Supervisor Relationship Specialty Start Date End Date Chandni Ramsey MD [address] [place] [address] PCP - General Internal Medicine 12/28/18
--- OUTSIDE RECORDS SUMMARY | 2025-01-07 16:54 | XMS_ITS ---
Author Name [facility] Organization Unknown Care Team Organization Name Specialty Phone Email Start Date End Da te [facility] 03/11/2022 12/21/2023
[2025-01-07 16:55] LABS: Alanine Aminotransferase 24 U/L (0-31); Albumin Level 5.0 g/dL (3.5-5.0); Alkaline Phosphatase 77 U/L (39-117); Anion Gap 15 (12-20); Aspartate Amino Transferase 26 U/L (5-31); Blood Urea Nitrogen 18 mg/dL (9-16); Calcium 9.6 mg/dL (8.4-10.2); Carbon Dioxide 23 mmol/L (22-29); Chloride 106 mmol/L (96-108); Creatinine Clr Calc Pharmacy 111.9; Estimated Glomerular Filt Rate > 60; Magnesium 1.9 mg/dL (1.6-2.6); Potassium 3.9 mmol/L (3.3-5.1); Sodium 140 mmol/L (135-145); Total Protein 7.9 g/dL (6.5-8.0)
[2025-01-07 18:35] VITALS: BP 139/97; PULSE 100; RESP 20; TEMP 37.2; O2SAT 99
[2025-01-07] MEDS: Sulfamethox/Trimeth 800/160 TABLET 1 TAB PO (20:19)
[2025-01-07 21:09] VITALS: BP 114/82; PULSE 82; RESP 18; TEMP 37.1; O2SAT 97
== END 2025-01-07 20:30 | disposition home or self-care (01) ==
PROVIDERS: Physician Assistant Medical; Emergency Provider Emergency Medicine; PCP Internal Medicine
DX: L03.211 Cellulitis of face (principal); L02.01 Cutaneous abscess of face
CPT/HCPCS: 36415; 70150; 80053; 83735; 85025; 85652; 86140; 99283; 99284

== ENCOUNTER → 2025-01-07 17:03 | Outpatient (BNV) | payer OTHER, SELFPAY | PROVIDERS: PCP Internal Medicine; Visit Provider Radiology Diagnostic Radiology | DX: S01.402A Unspecified open wound of left cheek and temporomandibular area, initial encounter (principal) | CPT/HCPCS: 70150 ==

== ENCOUNTER 2025-01-12 09:15 | Outpatient (RCR) | payer OTHER, SELFPAY | END 2025-01-12 16:17 | disposition home or self-care (01) | LOC: HO.WCC 09:15 | PROVIDERS: PCP Internal Medicine; Visit Provider Surgery Surgical Oncology | DX: L98.492 Non-pressure chronic ulcer of skin of other sites with fat layer exposed (principal); F42.4 Excoriation (skin-picking) disorder; F17.290 Nicotine dependence, other tobacco product, uncomplicated | CPT/HCPCS: 11042; 87070; 87073; 87147; 87205; 97597; 99212; 99213 ==